=== PATIENT | female | born 1985 | race Caucasian/White ===

== ENCOUNTER 2019-01-30 17:00 | Emergency (ER) | payer OTHER ==
[~2019-01-30] VITALS: Ht 172.7 cm; Wt 125.2 kg
[2019-01-30 17:04] VITALS: Ht 172.7 cm; Wt 125.2 kg
[2019-01-30 20:43] VITALS: BP 170/112
== END 2019-01-30 20:43 | disposition home or self-care (01) ==
LOC: ED 17:00
DX: M54.2 Cervicalgia (principal); G89.29 Other chronic pain; R51 Headache; R11.0 Nausea
CPT/HCPCS: J1885; Q0162